=== PATIENT | male | born 1975 | race Caucasian/White ===

== ENCOUNTER 2019-11-30 13:31 | Emergency (ER) | payer SELFPAY ==
[2019-11-30] MEDS ORDERED: Mag-Al 1200 mg/1200 mg/30 ML UDCUP ONE (14:01)
[2019-11-30] MEDS ORDERED: Lidocaine Viscous Sol 2% 15 ml UD Cup ONE (14:01)
[2019-11-30] MEDS ORDERED: Pantoprazole 40 MG VIAL ONE (14:01)
[2019-11-30] MEDS ORDERED: Ondansetron PF 4 MG/2 ML Vial ONE (14:01)
--- NOTE | 2019-11-30 14:07 | RAD ---
RADIOGRAPH CHEST 1 VIEW: DATE: 11/30/2019 HISTORY: 44-year-old male with chest pain and abdominal pain FINDINGS: There are no airspace densities, pulmonary edema, pneumothorax, or cardiomegaly. The lateral costophr enic angles are sharp. IMPRESSION: No acute cardiopulmonary findings.
[2019-11-30 14:26] LABS: #Eosinphils 0.1 thou/uL (0.0-0.7); #Lymphocytes 2.1 thou/uL (1.20-3.40); #Monocytes 0.5 thou/uL (0.11-0.59); %Basophils 0.3 % (0.0-1.0); %Eosinophils 1.2 % (0.0-10.0); %Lymphocytes 21.7 % (21.0-51.0); %Monocytes 5.1 % (0.0-10.0); %Neutrophils 71.6 % (42.0-75.0); Mean Corpuscular HGB CONC 32.5 g/dL (32.0-36.0); Mean Corpuscular Hemoglobin 27.5 pg (27.0-31.0); Mean Corpuscular Volume 84.4 fL (78.0-98.0); Mean Platelet Volume 9.5 fL (7.4-10.4); Platelet Count 156 thou/uL (130-400); RBC Distribution Width 11.9 % (11.5-14.5); Red Blood Cell (RBC) Count 5.47 mill/uL (4.70-6.10); White Blood Cell (WBC) Count 9.7 thou/uL (4.8-10.8)
[2019-11-30 14:49] LABS: ALT (SGPT) 28 U/L (8-55); AST (SGOT) 18 U/L (5-34); Albumin 4.2 g/dL (3.5-5.0); Alkaline Phosphatase 104 U/L (40-110); Anion Gap 12 mmol/L (10-20); BUN (Urea Nitrogen) 17 mg/dL (8.9-20.6); Bilirubin, Total 0.6 mg/dL (0.2-1.2); CK (CPK) 101 U/L (30-200); Calc. Creatinine Clearance 0 mL/min (70-130); Calcium 9.3 mg/dL (7.8-10.44); Carbon Dioxide 25 mmol/L (22-29); Chloride 102 mmol/L (98-107); Estimated GFR-MDRD 84; Glucose 102 mg/dL (70-105); Lipase 23 U/L (8-78); Potassium 3.8 mmol/L (3.5-5.1); Protein, Total 7.2 g/dL (6.0-8.3); Sodium 135 mmol/L (136-145)
== END 2019-11-30 15:15 | disposition home or self-care (01) ==
LOC: EDBD 13:31 → ERS 13:31
DX: R11.2 Nausea with vomiting, unspecified (principal); R19.7 Diarrhea, unspecified; I10 Essential (primary) hypertension; F43.10 Post-traumatic stress disorder, unspecified; F17.290 Nicotine dependence, other tobacco product, uncomplicated; Z79.899 Other long term (current) drug therapy
CPT/HCPCS: 71045; 80053; 82550; 83690; 84484; 85025; 93005; 96361; 96374; 96375; C9113; J2405

== ENCOUNTER 2020-08-19 10:02 | Emergency (ER) | payer OTHER ==
[2020-08-19 22:23] LABS: SARS-CoV-2 PCR by NAA Not Detected (NotDetected)
== END 2020-08-19 11:05 | disposition home or self-care (01) ==
LOC: ERS 10:02
DX: R19.7 Diarrhea, unspecified (principal); R05 Cough; I10 Essential (primary) hypertension; Z20.822 Contact with and (suspected) exposure to COVID-19; F17.290 Nicotine dependence, other tobacco product, uncomplicated
CPT/HCPCS: 36416; 87635; 99284; U0003; U0005

== ENCOUNTER 2021-04-01 12:10 | Emergency (ER) | payer OTHER ==
[2021-04-02 00:50] LABS: SARS-CoV-2 PCR by NAA DETECTED (NotDetected)
== END 2021-04-01 13:13 | disposition home or self-care (01) ==
LOC: ERS 12:10
DX: R43.8 Other disturbances of smell and taste (principal); R09.81 Nasal congestion; Z20.822 Contact with and (suspected) exposure to COVID-19; I10 Essential (primary) hypertension; F17.290 Nicotine dependence, other tobacco product, uncomplicated
CPT/HCPCS: 99283; U0003; U0005

== ENCOUNTER 2021-04-17 00:54 | Emergency (ER) | payer OTHER ==
[2021-04-17] MEDS ORDERED: Dexamethasone 4 MG TAB ONE (02:25)
[2021-04-17] MEDS ORDERED: Acetaminophen 500 MG TAB ONE (02:25)
== END 2021-04-17 03:50 | disposition home or self-care (01) ==
LOC: ERS 00:54
DX: R06.02 Shortness of breath (principal); R05 Cough; I10 Essential (primary) hypertension; F17.210 Nicotine dependence, cigarettes, uncomplicated; Z86.16 Personal history of COVID-19; Z79.899 Other long term (current) drug therapy
CPT/HCPCS: 36415; 71045; 84484; 85379; 93005; J8540